=== PATIENT | male | born 1995 | race African-American/Black ===

== ENCOUNTER 2017-10-23 14:05 | Emergency (ER) | payer OTHER ==
[~2017-10-23] VITALS: Ht 180.3 cm; Wt 86.2 kg
[2017-10-23] MEDS ORDERED: NKM (14:19)
[2017-10-23] MEDS ORDERED: HYDROCORTISONE-30 GM TOPIC (14:38)
[2017-10-23] MEDS ORDERED: TYLENOL EXTRA500 MG ORAL (14:38)
[2017-10-23] MEDS ORDERED: BENADRYL25 MG ORAL (14:38)
--- NOTE | 2017-10-23 14:38 | Emergency Room Report ---
History of Present Illness General Chief Complaint: Skin Rash/Abscess Source: Patient Present Illness HPI 22 yo male patient presents to ER complaining of redness and swelling on right arm since yesterday. Reports he was bit by "a bug". Patient reports itchiness; states he scratched continuously. Patient denies bleeding or pus. Patient denies fever, nausea, vomiting, chest pain, SOB, abdominal pain. Allergies: Coded Allergies: No Known Allergies (Unverified , 10/23/17) Patient History Past Medical History: see triage record Reviewed Nursing Documentation: PMH: Agreed, PSxH: Agreed Nursing Documentation-PMH Past Medical History: No Stated History Review of Systems All Other Systems: negative except mentioned in HPI Physical Exam Vital Signs Date Time Temp Pulse Resp B/P (MAP) Pulse Ox O2 Delivery O2 Flow Rate FiO2 10/23/17 14:16 98.1 104 18 145/77 96 Room Air 98.1 Sp02 EP Interpretation: reviewed, normal General Appearance: well appearing, no apparent distress, alert, GCS 15 Head: normocephalic, atraumatic Eyes: bilateral eye normal inspection, bilateral eye PERRL ENT: hearing grossly normal, normal pharynx, no angioedema, normal voice, uvula midline, moist mucus membranes Neck: full range of motion Respiratory: lungs clear, normal breath sounds, no rhonchi, no respiratory distress, no accessory muscle use, no wheezing, speaking full sentences Cardiovascular #1: regular rate, rhythm Gastrointestinal: non tender, soft, no mass, non-distended, no guarding, no rebound Genitourinary: no CVA tenderness Musculoskeletal: back normal, digits/nails normal, gait/station normal, normal range of motion, non-tender Neurologic: alert, oriented x3, responsive, motor strength/tone normal, sensory intact Psychiatric: mood/affect normal Skin: other - right forearm: 2cm erythema, edema, warm to touch, no bleeding, no open wound, no drainage Lymphatic: no adenopathy Medical Decision Making PA Attestation Dr. Aguilar is my supervising Physician whom patient management has been discussed with. Diagnostic Impression: Primary Impression: Rash and other nonspecific skin eruption ER Course Pt. presents to the ED c/o bug bite. Ddx considered but are not limited to atopic dermatitis, bug bite, urticaria, allergic reaction. PE: patient has full ROM of arm. Vital signs: are WNL, pt. is afebrile ORDERS: None required at this time, the diagnosis is clinical ED INTERVENTIONS: None required at this time. DISCHARGE: At this time pt. is stable for d/c to home. Patient resting comfortably, in no acute distress, nontoxic appearing. -Rx given for Benadryl for pruritis. SE may cause drowsiness. -Rx given for hydrocortisone cream. -Rx given for Tylenol for pain. Patient instructed to apply warm compresses to affected area. Care plan and follow up instructions have been discussed with the patient prior to discharge. Patient provided with printed patient care instructions, and any necessary prescriptions. Patient instructed to follow-up with primary care provider in 3 - 5 days. Patient questions asked and answered. Patient reports understanding and agreement to treatment plan. ER precautions given. Patient instructed to return to ER immediately for any new or worsening of symptoms including but not limited to increasing SOB, persistent fever. Last Vital Signs Date Time Temp Pulse Resp B/P (MAP) Pulse Ox O2 Delivery O2 Flow Rate FiO2 10/23/17 14:16 98.1 104 18 145/77 96 Room Air 98.1 Disposition: HOME, SELF-CARE Condition: Stable Scripts Hydrocortisone/Aloe Vera 1%* (HYDROCORTISONE-ALOE 1% CREAM*) Y Cr 1 APPLIC TOPIC Q6H Y for Itching, #30 GM Prov: Cornelius Singer 10/23/17 Diphenhydramine Hcl* (BENADRYL*) 25 Mg Capsule 25 MG ORAL Q6H Y for Itching, #20 CAP Prov: Cornelius Singer 10/23/17 Acetaminophen* (TYLENOL EXTRA STRENGTH*) 500 Mg Tablet 500 MG ORAL Q8H Y for Prn Headache/Temp > 101, #30 TAB 0 Refills Prov: Cornelius Singer 10/23/17 Patient Instructions: Insect Bite, [id number] Additional Instructions: Followup with primary care provider in 3 -5 days. Apply warm compresses. Take medications as directed. Patient questions asked and answered. ER precautions given, patient instructed to return to ER immediately for any new or worsening of symptoms. Cornelius Singer Oct 23, 2017 14:38
[2017-10-23 14:45] VITALS: BP 131/72
== END 2017-10-23 14:45 | disposition home or self-care (01) ==
LOC: EMR 14:36
DX: R21 Rash and other nonspecific skin eruption (principal); M79.89 Other specified soft tissue disorders; W57.XXXA Bitten or stung by nonvenomous insect and other nonvenomous arthropods, initial encounter; Y92.9 Unspecified place or not applicable
CPT/HCPCS: 99283

== ENCOUNTER 2017-10-26 19:51 | Emergency (ER) | payer OTHER ==
[~2017-10-26] VITALS: Ht 180.3 cm; Wt 88.5 kg
[~2017-10-26 19:51] MED LIST: BENADRYL25 MG ORAL; HYDROCORTISONE-30 GM TOPIC; NKM; TYLENOL EXTRA500 MG ORAL
[2017-10-26 20:03] VITALS: BP 145/87
[2017-10-26] MEDS ORDERED: Cephalexin 500mg cap ORAL ONE (20:15)
[2017-10-26] MEDS ORDERED: Bactrim-DS 1 tab ORAL ONE (20:15)
[2017-10-26] MEDS ORDERED: IBUPROFEN600 MG ORAL (20:20)
[2017-10-26] MEDS ORDERED: BACTRIM DS TAB1 EAC1 ORAL (20:20)
[2017-10-26] MEDS ORDERED: CEPHALEXIN500 MG ORAL (20:20)
[2017-10-26 20:24] VITALS: BP 145/87
--- NOTE | 2017-10-26 20:50 | Emergency Room Report ---
History of Present Illness General Chief Complaint: Skin Rash/Abscess Source: Patient Present Illness [facility] The patient is a 22-year-old male presenting for possible infection of right arm. He was seen in this emergency department 3 days prior for insect bite. He was prescribed topical steroids but no antibiotics. She states that symptoms have worsened including redness, swelling, and pain. Pain is now a 9/ 10 dull ache and does not radiate. Worse with touch. He also noticed some clear discharge from the area. He denies any fever or chills Allergies: Coded Allergies: No Known Allergies (Unverified , 10/23/17) Patient History Past Medical History: see triage record Pertinent Family History: none Reviewed Nursing Documentation: PMH: Agreed, PSxH: Agreed Nursing Documentation-PMH Past Medical History: No Stated History Review of Systems All Other Systems: negative except mentioned in HPI Physical Exam Vital Signs Date Time Temp Pulse Resp B/P (MAP) Pulse Ox O2 Delivery O2 Flow Rate FiO2 10/26/17 19:56 98.4 100 16 145/87 97 98.4 Sp02 EP Interpretation: reviewed, normal General Appearance: no apparent distress, alert, GCS 15, non-toxic Head: normocephalic, atraumatic Eyes: bilateral eye normal inspection, bilateral eye PERRL Musculoskeletal: inflammation - R mid medial forearm, tender - R mid medial forearm Neurologic: alert, oriented x3, responsive, motor strength/tone normal, sensory intact, speech normal Psychiatric: judgement/insight normal, memory normal, mood/affect normal, no suicidal/homicidal ideation Skin: rash - R mid medial forearm has erythema and edema Medical Decision Making PA Attestation Dr. Browning is my supervising physician. Patient management was discussed with my supervising physician Diagnostic Impression: Primary Impression: Abscess ER Course The patient is a 22-year-old male presenting for possible infection of right arm. Differential diagnoses considered but not limited to: abscess, cellulitis, insect bite PE: afebrile. NAD Right mid medial forearm has an approximately 5 cm indurated region with a central opening. Nonfluctuant. There is erythema and tenderness to palpation. Patient is given dose of Keflex and Bactrim in the emergency department The patient will be discharged home with a prescription for the same antibiotics. He was given indications to return for incision and drainage. Also given ER precautions if he develops fever, chills, increased pain or redness Last Vital Signs Date Time Temp Pulse Resp B/P (MAP) Pulse Ox O2 Delivery O2 Flow Rate FiO2 10/26/17 20:24 98.4 100 16 145/87 97 209.1 Status: improved Disposition: HOME, SELF-CARE Condition: Improved Scripts Cephalexin* (KEFLEX*) 500 Mg Capsule 500 MG ORAL EVERY 12 HOURS, #14 CAP 0 Refills Prov: LUIS DANIEL MELISSA P.A. 10/26/17 Trimethoprim/Sulfamethoxazole 160/800* (BACTRIM DS TABLET*) 1 Each Tablet 1 TAB ORAL TWICE A DAY, #14 TAB Prov: TERAMAURYANLUIS DANIEL P.A. 10/26/17 Ibuprofen* (MOTRIN*) 600 Mg Tablet 600 MG ORAL Q8H Y for For Pain, #30 TAB 0 Refills Prov: DEVANANLUIS DANIEL P.A. 10/26/17 Patient Instructions: Abscess Additional Instructions: I discussed my findings with the patient. All questions and concerns have been answered. Treatment and medication compliance have been addressed. I advised the patient that they need to follow up with PMD in 3-5 days. Return to ED if symptoms worsen, new symptoms arise, or if needed for any reason. Patient verbalized understanding of discharge instructions. Please return to the ER if you notice fever, chills, increased pain, increased redness or any other symptoms. LUIS DANIEL MELISSA Oct 26, 2017 20:50
== END 2017-10-26 21:00 | disposition home or self-care (01) ==
LOC: EMR 20:55
DX: L02.413 Cutaneous abscess of right upper limb (principal)
CPT/HCPCS: 99284